=== PATIENT | female | born 1980 | race Caucasian/White ===

== ENCOUNTER 2022-05-27 17:56 | Emergency (ER) | payer OTHER ==
[~2022-05-27] VITALS: Ht 160 cm; Wt 54.4 kg
[2022-05-27] MEDS ORDERED: CYCL10 PO (18:24)
== END 2022-05-27 18:33 | disposition home or self-care (01) ==
LOC: ER 17:56
DX: M54.2 Cervicalgia (principal)
CPT/HCPCS: 99282